=== PATIENT | female | born 1995 | race American Indian/Alaskan Native ===

== ENCOUNTER 2017-04-02 12:31 | Emergency (ER) | payer OTHER ==
[2017-04-02 12:37] VITALS: BP 118/76
--- NOTE | 2017-04-02 13:02 | Emergency Department Report ---
ED ENT HPI - General Chief complaint: Earache Stated complaint: RT EAR PAIN Time Seen by Provider: 04/02/17 12:56 Source: patient Mode of arrival: Ambulatory Limitations: No Limitations - History of Present Illness Initial comments: PT states she woke up with R ear pain. Pt denies recent URI, injury or trauma. MD complaint: ear pain -: During the night Location: R ear Severity: severe Severity scale (0 -10): 8 Quality: sharp Consistency: constant Improves with: other (no interventions attempted ) Worsens with: none Associated Symptoms: denies: fever, gum swelling, toothache, pain with swallowing, sore throat, discharge from ear, rhinorrhea - Related Data Previous Rx's Medication Instructions Recorded Last Taken Type Acetaminophen/Codeine [Tylenol #3] 1 tab PO Q6H PRN #20 tab 02/18/16 Unknown Rx Cyclobenzaprine [Flexeril] 10 mg PO TID PRN #30 tablet 02/18/16 Unknown Rx Ibuprofen [Motrin] 600 mg PO Q8H PRN #50 tablet 02/18/16 Unknown Rx Allergies Allergy/AdvReac Type Severity Reaction Status Date / Time No Known Allergies Allergy Unverified 02/18/16 14:55 ED Dental HPI - General Chief complaint: Earache Stated complaint: RT EAR PAIN Time Seen by Provider: 04/02/17 12:56 Source: patient Mode of arrival: Ambulatory Limitations: No Limitations - Related Data Previous Rx's Medication Instructions Recorded Last Taken Type Acetaminophen/Codeine [Tylenol #3] 1 tab PO Q6H PRN #20 tab 02/18/16 Unknown Rx Cyclobenzaprine [Flexeril] 10 mg PO TID PRN #30 tablet 02/18/16 Unknown Rx Ibuprofen [Motrin] 600 mg PO Q8H PRN #50 tablet 02/18/16 Unknown Rx Allergies Allergy/AdvReac Type Severity Reaction Status Date / Time No Known Allergies Allergy Unverified 02/18/16 14:55 ED Review of Systems ROS: Stated complaint: RT EAR PAIN Other details as noted in HPI Comment: All other systems reviewed and negative Constitutional: denies: fever, malaise ENT: ear pain. denies: throat pain, congestion Respiratory: denies: cough Genitourinary: denies: abnormal menses (03-13-17) Skin: denies: rash, change in color Neurological: headache (R sided). denies: abnormal gait ED Past Medical Hx - Past Medical History Previous Medical History?: No - Surgical History Past Surgical History?: No - Social History Smoking Status: Never Smoker Substance Use Type: None - Medications Home Medications: Home Medications Medication Instructions Recorded Confirmed Last Taken Type Acetaminophen/Codeine [Tylenol #3] 1 tab PO Q6H PRN #20 tab 02/18/16 Unknown Rx Cyclobenzaprine [Flexeril] 10 mg PO TID PRN #30 tablet 02/18/16 Unknown Rx Ibuprofen [Motrin] 600 mg PO Q8H PRN #50 tablet 02/18/16 Unknown Rx ED Physical Exam - General Limitations: No Limitations General appearance: alert, in no apparent distress - Head Head exam: Present: atraumatic, normocephalic, normal inspection - Eye Eye exam: Present: normal appearance, PERRL, EOMI. Absent: conjunctival injection Pupils: Present: normal accommodation - ENT ENT exam: Present: normal orophraynx, mucous membranes moist, normal external ear exam - Expanded ENT Exam Expanded TM/Canal exam: Effusion: Right TM, Loss of Landmarks: Right TM Mouth exam: Absent: drooling, trismus Teeth exam: Present: normal inspection Throat exam: Positive: normal inspection. Negative: tonsillar erythema, tonsillomegaly, tonsillar exudate - Neck Neck exam: Present: normal inspection, full ROM. Absent: tenderness, lymphadenopathy - Respiratory Respiratory exam: Present: normal lung sounds bilaterally. Absent: respiratory distress, chest wall tenderness - Cardiovascular Cardiovascular Exam: Present: regular rate, normal rhythm, normal heart sounds - Extremities Exam Extremities exam: Present: normal inspection, full ROM - Back Exam Back exam: Present: normal inspection, full ROM. Absent: tenderness - Neurological Exam Neurological exam: Present: alert, oriented X3 - Psychiatric Psychiatric exam: Present: normal affect, normal mood - Skin Skin exam: Present: warm, dry, intact, normal color ED Course Vital Signs 04/02/17 12:35 Temperature 98.4 F Pulse Rate 87 Respiratory 18 Rate Blood Pressure 118/76 O2 Sat by Pulse 100 Oximetry - Reevaluation(s) Reevaluation #1: 04/02/17 13:03 PT aware of abnormal PE findings, dx and plan of care. - Pulse Oximetry Interpretation Digit-Finger Initial Pulse Oximetry Readin Actions Taken: none ED Medical Decision Making - Differential Diagnosis cerumen impaction, om, oe Critical Care Time: No Critical care attestation.: If time is entered above; I have spent that time in minutes in the direct care of this critically ill patient, excluding procedure time. ED Disposition Clinical Impression: Right otitis media Qualifiers: Otitis media type: unspecified Chronicity: unspecified Qualified Code(s): H66.91 - Otitis media, unspecified, right ear Disposition: - TO HOME OR SELFCARE Is pt being admited?: No Does the pt Need Aspirin: No Condition: Stable Instructions: Otitis Media (ED) Additional Instructions: No driving or alcohol after taking Ultram Try to treat your pain with Motrin first Finish all antibiotics Referrals: CARLYN HILLMAN MD [Staff Physician] - 3-5 Days Forms: Work/School Release Form(ED) Time of Disposition: 13:06
== END 2017-04-02 13:18 | disposition home or self-care (01) ==
LOC: ED 12:31
DX: H66.91 Otitis media, unspecified, right ear (principal)
CPT/HCPCS: 99282

== ENCOUNTER 2017-04-06 18:07 | Emergency (ER) | payer SELFPAY ==
[2017-04-06 18:58] LABS: Eosinophils % (Auto) 0.6 % (0.0-4.3); Hematocrit 36.5 % (30.3-42.9); Hemoglobin 11.9 gm/dl (10.1-14.3); Mean Corpuscular HGB Conc 33 % (30-34); Mean Corpuscular Volume 78 fl (79-97); Platelet Count 321 K/mm3 (140-440); Red Blood Count 4.66 M/mm3 (3.65-5.03); White Blood Count 5.7 K/mm3 (4.5-11.0)
[2017-04-06 19:00] LABS: Mean Corpuscular Hemoglobin 26 pg (28-32)
[2017-04-06 19:13] LABS: Anion Gap 19 mmol/L; BUN/Creatinine Ratio 8.75; Blood Urea Nitrogen 7 mg/dL (7-17); Calcium 9.2 mg/dL (8.4-10.2); Carbon Dioxide 25 mmol/L (22-30); Chloride 100.7 mmol/L (98-107); Glucose 88 mg/dL (65-100); Potassium 4.3 mmol/L (3.6-5.0); Sodium 140 mmol/L (137-145)
[2017-04-06 19:38] LABS: Bilirubin,Urine NEG (Negative); Blood,Urine LG (Negative); Ketones,Urine NEG (Negative); Leukocyte Esterase,Urine NEG (Negative); Mucus,Urine FEW /HPF; Nitrite,Urine NEG (Negative); Protein,Urine <15 mg/dL mg/dL (Negative); Urobilinogen,Urine < 2.0 mg/dL (<2.0); WBC,Urine < 1.0 /HPF (0.0-6.0)
[2017-04-07] MEDS ORDERED: TYLENOL ONE (00:08)
[2017-04-07] MEDS ORDERED: TYLENOL PO ONE (00:09)
--- NOTE | 2017-04-07 02:07 | Emergency Department Report ---
ED Chest Pain HPI - General Chief Complaint: Dizziness Stated Complaint: CHEST PAIN Time Seen by Provider: 04/07/17 01:59 Source: patient Mode of arrival: Ambulatory Limitations: No Limitations - History of Present Illness Initial Comments: Patient is coming today complaining of right chest pain sharp in nature associated with dizziness. No cough or shortness of breath or fever. No nausea no vomiting. A similar condition MD Complaint: chest pain -: Last night Pain Location: right chest Severity scale (0 -10): 8 Quality: sharp - Related Data Previous Rx's Medication Instructions Recorded Last Taken Type Amoxicillin 500 mg PO BID #20 capsule 04/02/17 Unknown Rx Ibuprofen [Motrin] 600 mg PO Q8H PRN #15 tablet 04/02/17 Unknown Rx traMADol [Ultram] 50 mg PO Q6HR PRN #12 tablet 04/02/17 Unknown Rx Metaxalone [Skelaxin] 800 mg PO TID #30 tablet 04/07/17 Unknown Rx Naproxen [Naprosyn] 500 mg PO BID #14 tablet 04/07/17 Unknown Rx Allergies Allergy/AdvReac Type Severity Reaction Status Date / Time No Known Allergies Allergy Unverified 02/18/16 14:55 Heart Score - HEART Score History: Slightly suspicious EKG: Normal Age: < 45 Risk factors: No known risk factors Troponin: < normal limit HEART Score: 0 - Critical Actions Critical Actions: 0-3 pts:0.9-1.7%risk of adverse cardiac event.Candidate for discharge ED Review of Systems ROS: Stated complaint: CHEST PAIN Other details as noted in HPI Comment: All other systems reviewed and negative Constitutional: denies: chills, fever Respiratory: denies: cough, shortness of breath, SOB with exertion Cardiovascular: chest pain. denies: palpitations, dyspnea on exertion, orthopnea, edema, syncope Gastrointestinal: denies: abdominal pain, nausea, vomiting, constipation, hematemesis Musculoskeletal: denies: back pain Neurological: denies: headache, weakness, numbness, paresthesias ED Past Medical Hx - Past Medical History Previous Medical History?: No - Surgical History Past Surgical History?: No - Social History Smoking Status: Never Smoker Substance Use Type: Prescribed - Medications Home Medications: Home Medications Medication Instructions Recorded Confirmed Last Taken Type Amoxicillin 500 mg PO BID #20 capsule 04/02/17 Unknown Rx Ibuprofen [Motrin] 600 mg PO Q8H PRN #15 tablet 04/02/17 Unknown Rx traMADol [Ultram] 50 mg PO Q6HR PRN #12 tablet 04/02/17 Unknown Rx Metaxalone [Skelaxin] 800 mg PO TID #30 tablet 04/07/17 Unknown Rx Naproxen [Naprosyn] 500 mg PO BID #14 tablet 04/07/17 Unknown Rx ED Physical Exam - General Limitations: No Limitations ED Course Vital Signs 04/06/17 04/07/17 04/07/17 18:23 00:05 00:10 Temperature 98.8 F 97.5 F L Pulse Rate 72 75 Respiratory 17 18 18 Rate Blood Pressure 119/72 135/83 Blood Pressure [Left] O2 Sat by Pulse 100 95 Oximetry 04/07/17 03:19 Temperature 98 F Pulse Rate 67 Respiratory 18 Rate Blood Pressure Blood Pressure 113/74 [Left] O2 Sat by Pulse 100 Oximetry - Reevaluation(s) Reevaluation #2: 04/07/17 04:00 Patient stated that she is feeling better for about had labs and x-rays all came back negative, need to follow-up with her primary care physician ED Medical Decision Making - Lab Data Result diagrams: 04/06/17 18:41 04/06/17 18:41 Critical care attestation.: If time is entered above; I have spent that time in minutes in the direct care of this critically ill patient, excluding procedure time. ED Disposition Clinical Impression: Chest pain Disposition: DC-01 TO HOME OR SELFCARE Is pt being admited?: No Condition: Stable Instructions: Chest Pain (ED), Costochondritis (ED) Referrals: PRIMARY CARE, [Primary Care Provider] - 3-5 Days
[2017-04-07 03:20] VITALS: BP 113/74
--- NOTE | 2017-04-07 09:26 | XRay Report ---
AP CHEST : 04/06/17 02:10 CLINICAL: Chest pain. COMPARISON:None FINDINGS: Normal heart and pulmonary vessels. The lungs are normally expanded and clear. The bones and soft tissues are unremarkable. IMPRESSION: Normal chest.
== END 2017-04-07 05:35 | disposition home or self-care (01) ==
LOC: ED 18:07
DX: R07.89 Other chest pain (principal); R42 Dizziness and giddiness
CPT/HCPCS: 36415; 71010; 80048; 81001; 84703; 85025; 85379; 93005; 93010; 99284

== ENCOUNTER 2017-09-18 18:34 | Emergency (ER) | payer SELFPAY | END 2017-09-18 19:30 | disposition left against medical advice (07) | LOC: ED 18:34 | DX: M79.645 Pain in left finger(s) (principal); Z53.21 Procedure and treatment not carried out due to patient leaving prior to being seen by health care provider ==